=== PATIENT | female | born 1990 | race Caucasian/White ===

== ENCOUNTER 2016-04-12 11:49 | Day surgery (SDC) | payer OTHER ==
[~2016-04-12] VITALS: Ht 152.4 cm; Wt 72.5 kg
[~2016-04-12 11:49] MED LIST: AMITRIPTYLINE H50 MG PO; ERGOCALCIF50000 UNIT PO; IBUPROFEN800 MG PO; KEPPRA500 MG PO; PRENATAL TABLE1 EAC3 PO; TIZANIDINE HCL4 MG PO; TYLENOL REGULA325 MG PO; TYLENOL WITH C1 EACH PO
[2016-04-12 12:14] VITALS: BP 110/66
[2016-04-12] MEDS ORDERED: MOTRIN800 MG PO (14:19)
[2016-04-12] MEDS ORDERED: PERCOCET 5/31 TABLET PO (14:19)
[2016-04-12 16:09] VITALS: BP 120/71
[2016-04-12 17:07] VITALS: BP 107/68
== END 2016-04-12 17:19 | disposition home or self-care (01) ==
LOC: SDC 11:49
PROC: 0UL74CZ Occlusion of Bilateral Fallopian Tubes with Extraluminal Device, Percutaneous Endoscopic Approach (ICD-10-PCS; principal; 2016-04-12)
DX: Z30.2 Encounter for sterilization (principal); Z87.891 Personal history of nicotine dependence
CPT/HCPCS: J1100; J1170; J1885; J2250; J2405; J2710; J3010